=== PATIENT | female | born 1935 | race Caucasian/White ===

== ENCOUNTER 2017-10-17 08:21 | Inpatient (IN) ==
[2017-10-17] MEDS ORDERED: fentaNYL 100 MCG/2 ML VIAL IV ONE (08:50)
[2017-10-17] MEDS ORDERED: ONDANSETRON 4 MG/2 ML VIAL IV ONE ×2 (08:51→14:55)
--- NOTE | 2017-10-17 10:26 | XRay Report ---
CLINICAL INFORMATION: Preoperative evaluation TECHNIQUE: PA chest x-ray COMPARISON: 10/07/2017 FINDINGS: There are power packs overlying the upper chest bilaterally. These are apparently for neural stimulators. Lungs are negative. No parenchymal infiltrate or mass. Heart size and vascularity are normal. No pulmonary edema. No pulmonary congestion. No acute abnormality or interval change. Incidental note is made of methylmethacrylate within the L1 vertebral body. IMPRESSION: No acute or focal abnormality Interpreted and Authenticated by: Antoine Jacques 10/17/17
--- NOTE | 2017-10-17 10:28 | XRay Report ---
CLINICAL INFORMATION: Left shoulder pain TECHNIQUE: AP internal and external rotation views, axillary view COMPARISON: None. FINDINGS: Mild degenerative disease in the left glenohumeral joint. Mild degenerative disease in the acromioclavicular joint. No left shoulder fracture. No glenohumeral dislocation. Scapula and clavicle are negative. Humeral head is negative IMPRESSION: 1. No fracture or dislocation 2. Mild degenerative joint disease Interpreted and Authenticated by: Antoine Jacques 10/17/17
--- NOTE | 2017-10-17 10:36 | XRay Report ---
CLINICAL INFORMATION: Fall. Hip pain. TECHNIQUE: AP pelvis. AP and lateral left hip COMPARISON: Previous pelvis dated 03/15/2016 FINDINGS: Comminuted intratrochanteric left hip fracture. There is foreshortening and marked varus angulation deformity. There is atherosclerotic calcification. There is mild deformity of the left superior pubic ramus. This is unchanged. No acute pelvic fracture. IMPRESSION: 1. Comminuted left intertrochanteric hip fracture 2. Foreshortening and varus angulation deformity Interpreted and Authenticated by: Antoine Jacques 10/17/17
[2017-10-17] MEDS: HYDROmorphone 2 MG/ML VIAL IV PRN ×3 (11:45→19:00)
--- NOTE | 2017-10-17 11:59 | Emergency Department Note ---
Fall HPI - General Chief Complaint: Fall Stated Complaint: fall, hip pain, shoulder pain. Time Seen by Provider: 10/17/17 11:26 Source: family, EMS Mode of arrival: wheelchair - History of Present Illness HPI Narrative: This very nice 82-year-old female fell around 7 AM this morning and had pain in her left shoulder and left hip. She has a history of several falls recently. This is due to her Parkinson's which has become quite severe. She uses a walker but requires assist. She is not on any blood thinners. There was no loss of consciousness. She usually is able to get to the bathroom. She has significant pain and that is why she is here in the emergency room now. She received 50 of fentanyl in route and an additional 50 here in the ER. Her pain is coming back now. Patient has recently started hospice due to her severe Parkinson's and failure to thrive. She has difficulties with her appetite being poor as well as some difficulty swallowing which is at least in part due to the fixed hyperflexion of her neck. This is contributed to some choking as well. REVIEW OF SYSTEMS: No fevers, chills or sweats. Denies chest pain. Denies cough and shortness of breath. Denies abdominal pain, nausea, vomiting. Has some anxiety and some depression type of symptoms. - Related Data Home Medications Medication Instructions Recorded Confirmed ferrous sulfate, dried ER 159 mg 159 mg PO QDAY tab 05/06/15 06/24/17 (45 mg iron) tablet,extended release pramipexole 0.5 mg tablet 0.5 mg PO TID 05/06/15 06/24/17 selegiline 5 mg tablet 5 mg PO BID 05/06/15 06/24/17 carisoprodol 350 mg tablet 350 mg PO QHS tab 06/27/15 06/24/17 cyanocobalamin (vit B-12) 1,000 1,000 mcg IM QMONTH 12/04/15 06/24/17 mcg/mL injection solution sennosides 8.6 mg tablet 8.6 mg PO QD-BID PRN 12/04/15 06/24/17 hydrocodone 7.5 mg-acetaminophen PO 30 Days #90 07/07/16 06/24/17 325 mg tablet Tradjenta 03/28/17 06/24/17 Previous Rx's Medication Instructions Recorded linaclotide 145 mcg capsule 145 mcg PO QAM #30 cap 10/03/15 calcium 600 mg-D3 800 unit-mag11 1 tab-cap PO BID #180 tab 03/04/16 50 yb-bpbp-knvqwt-darrin-s.borat tablet linagliptin 5 mg tablet 5 mg PO QDAY #90 tab 10/20/16 atorvastatin 10 mg tablet 10 mg PO .COMPLEX #90 tab 11/04/16 valacyclovir 500 mg tablet See Dose Instructions PO .COMPLEX 01/03/17 #90 tab metformin 500 mg tablet 500 mg PO BID #180 tab 02/17/17 True Metrix Glucose Meter See Dose Instructions .ROUTE 06/27/17 .MEDSUPPLY #1 each NS True Metrix Glucose Test Strip See Dose Instructions .ROUTE 06/27/17 .MEDSUPPLY #100 each NS levothyroxine 75 mcg tablet 75 mcg PO QDAY #90 tab 08/16/17 HYDROcodone/APAP 10/325MG [[place] 1 tab PO Q6H PRN #20 tab 08/24/17 10-325Mg] amoxicillin 875 mg-potassium 1 tab PO BID #20 tab 09/14/17 clavulanate 125 mg tablet risperidone 0.5 mg tablet 0.5 mg PO QHS #30 tab 09/23/17 Allergies Allergy/AdvReac Type Severity Reaction Status Date / Time [place] Allergy Unknown unknown Verified 10/17/17 08:28 oats Allergy Unknown unknown Verified 10/17/17 08:28 wheat Allergy Unknown unknown Verified 10/17/17 08:28 sulfamethoxazole AdvReac Severe Nausea Verified 10/17/17 08:28 ibuprofen AdvReac Unknown Itching Verified 10/17/17 08:28 sitagliptin [From Januvia] AdvReac Unknown Abdominal Verified 10/17/17 08:28 Pain Fall PMH - Past Medical History Medical history: Reports: DM, hyperlipidemia, hypertension, hypothyroidism, osteoporosis (Compression fractures thoracic, lumbar.), other (Parkinson's disease - severe. ). Denies: cancer, CVA, myocardial infarction Reports: Parkinson's Disease Surgical history ED: Reports: other (Double brain stimulator.) Psychiatric history: Reports: anxiety, depression, other (Hallucinations) SOLID SURFACE FABRICATOR history: Reports: non-contributory Family history: Reports: no significant family history - Social History smoking status: Never smoker Alcohol use: Reports: None Drug use: Reports: none. Denies: marijuana Physical Exam Limitations: physical limitation General appearance: alert, cachectic, other (Limited abilities to move in bed.) Head: atraumatic, normocephalic Eye: Present: EOMI ENT: mucous membranes dry Neck: Present: trachea midline Respiratory: Present: normal lung sounds bilaterally. Absent: respiratory distress, wheezes, stridor, accessory muscle use, prolonged expiratory phase Cardiovascular: Present: regular rate, normal rhythm. Absent: systolic murmur, diastolic murmur Abdominal: Present: soft. Absent: distention, tenderness, guarding, rebound, rigidity, organomegaly, mass Extremities: Absent: pedal edema, pretibial edema, calf tenderness Neurological: Present: alert Psychiatric: Present: flat affect (more facies. interactive appropriately but slow of speech and quiet in volume.) Skin: Present: warm, dry Course Course Narrative: Severe Parkinson's with a fall. X-ray demonstrates a intertrochanteric fracture of the left hip. I discussed with patient and his the considerations of having this be surgically treated. I spoke with the orthopedic physician who indicates that a short nail would be the temporary probable fix that would be most effective and useful. Without this, she would have still some significant pain with even moving around for taking care of hygiene etc. She would not be able to stand, she would have side effects of medications, etc. It seems that the right thing to do for palliation of her pain and least medication side effects would be to go ahead and have the surgical procedure. Dr. Christianson seems to be in agreement with this. Pending hospitalist to accept care and consult orthopedic Vital Signs Temperature 97.7 F 10/17/17 08:23 Pulse Rate 69 10/17/17 08:23 Respiratory Rate 16 10/17/17 08:23 Blood Pressure 123/55 10/17/17 08:23 Pulse Oximetry (%) 96 10/17/17 08:23 Temperature 97.7 F 10/17/17 08:23 Pulse Rate 70 10/17/17 09:50 Respiratory Rate 20 10/17/17 09:50 Blood Pressure 125/63 10/17/17 09:50 Pulse Oximetry (%) 96 10/17/17 09:50 Fall - MDM Narrative Medical decision making narrative: Because of patient's left hip fracture, I spoke with orthopedic, Dr. Lionel Christianson, and then with hospitalist Dr. Zarco. Conclusion generally in discussing pluses and minuses including involving patient's and patient is that the surgical procedure may be the most beneficial to the patient with least amount of pain, management difficulties, and side effects of medications. Dr. Zarco kindly accepted care of this patient and Dr. Christianson will then consult. - Lab Data Lab results reviewed: Yes I reviewed the patient's lab results. - Radiology Data Radiology results reviewed: Yes I reviewed the patient's radiology results. - EKG Data EKG results narrative: Difficult to read ECG due to brain stimulator. No acute ST-T wave findings. This EKG will be read by plate worker as well. Disposition Pt seen by SENIOR MANUFACTURING ENGINEER/PA only: No Clinical Impression: History of compression fracture of spine Hip fracture, left Qualifiers: Encounter type: initial encounter Fracture type: closed Qualified Code(s): S72.002A - Fracture of unspecified part of neck of left femur, initial encounter for closed fracture Osteoporosis Qualifiers: Osteoporosis type: unspecified Presence of current pathological fracture: with current pathological fracture Encounter type: subsequent encounter Fracture healing: with routine healing Qualified Code(s): M80.00XD - Age-related osteoporosis with current pathological fracture, unspecified site, subsequent encounter for fracture with routine healing Diabetes mellitus type 2, controlled, without complications Qualifiers: Diabetes mellitus senior care insulin use: without buttermaker continuous churn use Qualified Code(s ): E11.9 - Type 2 diabetes mellitus without complications Disposition: Xfer As Inpt ([facility]) Condition: Fair Referrals: Selvin Cochran MD [Primary Care Provider] -
[2017-10-17 12:39] LABS: Basophils # (Auto) 0 K/mcL (0.0-0.3); Basophils % (Auto) 0.1 % (0.0-2.0); Eosinophils # (Auto) 0 K/mcL (0.0-0.7); Eosinophils % (Auto) 0 % (0.0-7.0); Granulocytes % (Auto) 93.1 % (38.0-78.0); Lymphocytes # (Auto) 0.7 K/mcL (1.5-4.8); Mean Cell Volume 95.8 fL (80.0-100.0); Mean Corpuscular HGB Conc 33.2 g/dL (31.0-36.0); Mean Corpuscular Hemoglobin 31.8 pg (26.0-34.0); Monocytes # (Auto) 0.3 K/mcL (0.1-0.9); Monocytes % (Auto) 1.8 % (1.0-12.0); Platelet Count 219 K/mcL (140-440); RBC 3.72 M/mcL (4.00-5.20); Red Cell Distribution Width 13.8 % (11.5-14.5)
[2017-10-17 13:03] LABS: ALT/SGPT 20 U/l (0-40); Albumin 3.8 gm/dL (3.2-5.2); Albumin/Globulin Ratio 1.7 (1.0-2.3); Alkaline Phosphatase 66 U/L (39-117); Blood Urea Nitrogen 11 mg/dl (8-23)
[2017-10-17] MEDS ORDERED: 0.9 % SODIUM CHLORIDE 1,000 ML IV SCH ×4 (13:30→17:17)
[2017-10-17] MEDS ORDERED: ceFAZolin 1 GM VIAL IV ONE (14:06)
[2017-10-17] MEDS ORDERED: KETAMINE 100 MG/ML ML IV ONE (14:55)
[2017-10-17] MEDS ORDERED: GLYCOPYRROLATE 0.2 MG/ML VIAL IV ONE (14:55)
[2017-10-17] MEDS ORDERED: MIDAZOLAM 2 MG/2 ML VIAL IV ONE (14:55)
[2017-10-17] MEDS ORDERED: LIDOCAINE HCL/PF 100 MG/5 ML SYRINGE IV ONE (14:55)
[2017-10-17] MEDS ORDERED: PROPOFOL 200 MG/20 ML VIAL IV ONE (14:55)
[2017-10-17 15:16] LABS: Appearance,Urine CLEAR; Bilirubin,Urine NEG (NEG); Color,Urine YELLOW; Glucose,Urine (UA) NEGATIVE (NEG); Leukocyte Esterase,Urine NEG /uL (NEG); Protein,Urine NEG (NEG); Specific Gravity,Urine 1.017 (1.000-1.035); Urine Blood NEG mg/dL (<0.03); Urobilinogen,Urine NEG (NEG)
--- NOTE | 2017-10-17 15:29 | History and Physical Report ---
DATE OF ADMISSION: 10/17/2017 CHIEF COMPLAINT: Fall with left hip and shoulder pain. HISTORY OF PRESENT ILLNESS: The patient is an 82-year-old female who fell earlier this morning who was brought to the emergency room after complaining of left hip and shoulder pain. She was evaluated by an emergency medicine physician and found to have a left hip fracture. She states on exam today that she has fallen quite a bit recently due to her Parkinson's which is progressing and becoming more severe. She was recently placed on hospice and is living at home with her . She typically ambulates with a walker and requires quite a bit of assistance. She states that she was putting on slippers this morning and slipped and fell. She is complaining of left hip pain but no pain in the rest of her extremities. She does say she has a little left shoulder pain from the fall, but her other extremities are without pain. She denies numbness, tingling, chest pain, shortness of breath, dizziness. She denies hitting her head or losing consciousness during the fall. The patient was seen and examined at bedside with her . She also has failure to thrive which is part of why she was placed on hospice. REVIEW OF SYSTEMS: Negative except as documented in the HPI. HOME MEDICATIONS: 1. Ferrous sulfate. 2. Pramipexole. 3. Selegiline. 4. Carisoprodol. 5. Cyanocobalamin. 6. Sennoside. 7. Hydrocodone. 8. Tradjenta. ALLERGIES: 1. CORN. 2. OAT. 3. WHEAT. 4. SULFAMETHOXAZOLE. 5. IBUPROFEN. 6. SITAGLIPTIN. PAST MEDICAL HISTORY: Includes diabetes mellitus, hyperlipidemia, hypertension, hypothyroidism, osteoporosis, Parkinson's disease. SOCIAL HISTORY: The patient is not a smoker. No alcohol use, no drug use. PHYSICAL EXAMINATION: VITAL SIGNS: Temperature 97.7, pulse is 69, respiratory rate 16, blood pressure 123/55, bedside pulse ox on room air is 96%. GENERAL: Alert, no distress, cachectic, fatigued. HEAD: Atraumatic, normocephalic. LUNGS: All anterior lung barrett clear to auscultation bilaterally. No use of accessory muscles. HEART: Regular rate and rhythm. No murmurs, gallops or rubs are appreciated. EXTREMITIES: The patient is lying with knees bent to the left side as this is more comfortable for her. Full range of motion of the lower extremities was not evaluated due to pain. She can actively move her ankles and feet. She has full sensation, grossly intact to light touch throughout the lower extremities. Bilateral upper extremities are nontender to palpation. The patient has severe muscle wasting throughout the entire body. PERIPHERAL VASCULAR: Radial pulses 2+ bilaterally. DP/PT pulses are 2+ bilaterally. Good capillary refill less than 3 seconds distally. SKIN: Warm, dry, without abrasions. NEUROLOGIC: Alert and oriented x3. LABORATORY DATA: WBC 14.8, hemoglobin 11.8, hematocrit 35.6. PT 14, INR 1.1. Random glucose 161. IMAGING STUDIES: Hip X-ray of the left hip reveals a displaced intertrochanteric left hip fracture. Shoulder x-rays from today reveal no osseous injury or abnormality. IMPRESSION: Left displaced intertrochanteric femur fracture. PLAN: After reviewing these images with Dr. Christianson and discussing treatment options with the patient and her , we recommend surgical intervention with an intramedullary nailing of the left hip for fracture stabilization and pain control. We discussed the surgery at length, including the risks and benefits associated which included but not limited to, risk of infection, the risk of malunion, the risk of nonunion, risk of bleeding, and the risks associated with anesthesia. The patient and her understand these risks and wished to proceed with surgery for comfort measures. The surgery will be performed by Dr. Christianson today at [facility]. We would like the patient to be admitted with a hospitalist consultation for further medical management and medical care. All questions were answered during the consultation. CKsavannah Job ID: [id number] Doc ID: [id number] Paty Brown
[2017-10-17] MEDS ORDERED: METHOCARBAMOL 1,000 MG/10 ML VIAL IV PRN (15:36)
[2017-10-17] MEDS ORDERED: MEPERIDINE 25 MG/ML SYRINGE IV PRN (15:36)
[2017-10-17] MEDS ORDERED: IPRATROPIUM/ALBUTEROL 3 ML AMPUL.NEB NEB PRN (15:36)
[2017-10-17] MEDS ORDERED: fentaNYL 100 MCG/2 ML VIAL IV PRN (15:36)
[2017-10-17] MEDS ORDERED: ONDANSETRON 4 MG/2 ML VIAL IV PRN ×2 (15:36→17:17)
[2017-10-17] MEDS ORDERED: ACETAMINOPHEN 750 MG/75 ML BOTTLE IV ONE (15:36)
[2017-10-17] MEDS ORDERED: LACTATED RINGERS 1,000 ML IV SCH (15:45)
--- NOTE | 2017-10-17 15:46 | Brief Operative Note ---
Date of procedure: 10/17/17 Pre-op diagnosis: left hip IT fracture Post-op diagnosis: same Procedure: left hip gamma nail Grafts/Implants: Yes Anesthesia: GETA Complications: none Surgeon: Antoine Christianson Tobacco Hanger: Paty Brown Estimated blood loss (cc): 100 Specimens Removed/Pathology: none sent Condition: stable Disposition: PACU
[2017-10-17] MEDS ORDERED: POLYETHYLENE GLYCOL 3350 17 GM PACKET PO PRN ×2 (15:47→17:17)
[2017-10-17] MEDS ORDERED: BISACODYL 10 MG SUPP.RECT PR PRN ×2 (15:47→17:17)
[2017-10-17] MEDS ORDERED: HYDROcodone/APAP 5/325MG TABLET PO PRN (15:47)
[2017-10-17] MEDS ORDERED: BENZOCAINE/MENTHOL 1 LOZENGE PO PRN ×2 (15:47→17:17)
[2017-10-17] MEDS ORDERED: METHOCARBAMOL 750 MG TABLET PO PRN (15:47)
[2017-10-17] MEDS ORDERED: MAGNESIUM HYDROXIDE 30 ML ORAL.SUSP PO PRN ×2 (15:47→17:17)
[2017-10-17] MEDS ORDERED: ONDANSETRON ODT 4 MG TABLET SL PRN ×2 (15:47→17:17)
[2017-10-17] MEDS ORDERED: FLEETS ADULT ENEMA PR PRN ×2 (15:47→17:17)
--- NOTE | 2017-10-17 16:05 | XRay Report ---
CLINICAL INFORMATION: Open reduction and internal fixation left intertrochanteric hip fracture TECHNIQUE: 0.8 minutes fluoroscopy utilized. Open reduction and internal fixation of a left hip fracture performed. Spot films were obtained demonstrating gamma nail configuration IMPRESSION: Intraoperative fluoroscopy utilized for open reduction and internal fixation of left intertrochanteric hip fracture Interpreted and Authenticated by: Antoine Jacques 10/17/17
[2017-10-17] MEDS ORDERED: traZODone HCL 50 MG TABLET PO PRN (17:17)
[2017-10-17] MEDS ORDERED: ACETAMINOPHEN 1,000 MG/100 ML BOTTLE IV PRN (17:17)
[2017-10-17] MEDS ORDERED: ACETAMINOPHEN 325 MG TABLET PO PRN (17:17)
[2017-10-17] MEDS ORDERED: HYDROmorphone 2 MG/ML VIAL IV PRN (17:17)
--- NOTE | 2017-10-17 17:36 | XRay Report ---
CLINICAL INFORMATION: Postsurgical follow-up TECHNIQUE: AP pelvis. [place] lateral left hip COMPARISON: Preoperative evaluation dated 10/17/2017 FINDINGS: Intertrochanteric left hip fracture. Status post open reduction and internal fixation with gamma nail configuration. Alignment is suboptimally assessed as the patient is rotated. Compression screw and intramedullary nail within bone and alignment is markedly improved as compared with preoperative evaluation. IMPRESSION: 1. Intratrochanteric left hip fracture 2. Status post open reduction and internal fixation with gamma nail configuration Interpreted and Authenticated by: Antoine Jacques 10/17/17
[2017-10-17] MEDS ORDERED: WARFARIN 2 MG TABLET PO ONE (18:00)
[2017-10-17] MEDS: 0.9 % SODIUM CHLORIDE 1,000 ML IV SCH (18:59)
[2017-10-17] MEDS: 0.9 % SODIUM CHLORIDE 10 ML SYRINGE IV SCH ×2 (18:59→22:06)
[2017-10-17 20:25] LABS: Appearance,Urine CLEAR; Bilirubin,Urine NEG (NEG); Color,Urine YELLOW; Glucose,Urine (UA) NEGATIVE (NEG); Ictotest,Urine NEG (NEG); Leukocyte Esterase,Urine NEG /uL (NEG); Protein,Urine NEG (NEG); Specific Gravity,Urine 1.033 (1.000-1.035); Urine Blood NEG mg/dL (<0.03); Urobilinogen,Urine NEG (NEG)
[2017-10-17] MEDS: SENNOSIDES/DOCUSATE SODIUM 1 TAB TABLET PO SCH (20:30)
[2017-10-17] MEDS: DOCUSATE SODIUM 100 MG CAPSULE PO SCH (20:30)
[2017-10-17] MEDS ORDERED: HEPARIN 5,000 UNIT/ML VIAL SQ SCH (21:00)
[2017-10-17] MEDS ORDERED: SENNOSIDES 1 TABLET PO SCH ×2 (21:00)
[2017-10-17] MEDS ORDERED: DOCUSATE SODIUM 100 MG CAPSULE PO SCH ×2 (21:00)
[2017-10-17] MEDS ORDERED: SENNOSIDES 1 TABLET PO PRN (21:51)
--- NOTE | 2017-10-17 21:58 | Internal Med History&Physical ---
Medical - H&P: HPI Patient information: Note initiated : 10/17/17 at 9:55 pm Service Date, if different from initiated Date: [] Patient: Tere Mancia a 82 y/o F admitted on 10/17/17 for Fall, Hip Pain, Shoulder Pain. Chief Complaint: [] Chief complaint: fall , left hip fracture History of present illness: Ms. Mancia is a 82 year old F admitted following a traumatic left hip fracture , H/o parkinsons with ataxia. Patient came in to the ER with her . She sustained a fall this morning getting off balance landing on her left hip and shoulder. Denies history of seizure, loss of consciousness, recent fever or chest pain, palpitation or thunderclap headache. Patient has had a gradual decline due to underlying Parkinson's disease and failure to thrive and is on hospice however in light of new fracture and excruciating pain she is currently being evaluated by orthopedics for possible surgical repair for palliation. Hospitalist service is consulted for management of medical issues. At the time of examination patient is in moderate discomfort. She is scheduled for surgical repair in the next few hours. No modifiable risk factor at this time. Patient remains a high risk operative candidate. Review systems Denies fever, abdominal pain, headache photophobia. Endorses to back pain and left shoulder pain. Denies diarrhea dysuria or chest pain or cough. 10 point review systems is performed and is negative except as discussed above Medical - H&P: PMH Medical history: DM 2 Compression fracture of lumbar vertebra (Acute) BPPV (benign paroxysmal positional vertigo) (Chronic) Cervical spondylosis without myelopathy (Chronic) Chronic pain (Chronic) Degenerative disc disease (Chronic) Hypercholesterolemia (Chronic) Hyperlipidemia (Chronic) Hypothyroidism (acquired) (Chronic) Intermittent constipation (Chronic) Menieres disease (Chronic) Parkinsons disease (Chronic) Postgastric surgery syndromes (Chronic) Dumping syndrome Restless leg syndrome (Chronic) Chronic Slow transit constipation (Chronic) Spondylolysis, lumbosacral region (Chronic) Abdominal pain (Resolved) Cervical dystonia (Resolved) Chronic and worse Cervicalgia (Resolved) Chronic cervicalgia with advanced cervical dystonia Closed fracture of pelvis (Resolved) Fall at home (Resolved) Gastrointestinal disorder (Resolved) 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 Hyperglycemia (Resolved) Joint pain (Resolved) Arthritis/acute chronic site unspec Left hip pain (Resolved) Left low back pain (Resolved) UTI (urinary tract infection) (Resolved) Surgical history: S/P deep brain stimulator placement (Chronic) Implantation History of back surgery (Resolved) Lumbar disc surgery-age 67 History of partial hysterectomy (Resolved) age 31 Hx of tonsillectomy (Resolved) age 14 S/P foot surgery (Resolved) S/P gastroplasty (Resolved) age 27 Pertinent family history: Uncle Malignant neoplasm of prostate Grandmother-Paternal Family history of malignant neoplasm of gastrointestinal tract Brother Family history of arthritis Type 2 diabetes mellitus Mother Family history of leukemia Sister Type 2 diabetes mellitus Amyotrophic lateral sclerosis, Onset Age: 70 Social history: marital status: occupational status: retired smoking status: Never smoker alcohol intake frequency: does not drink substance use type: does not use Medical - H&P: Meds Home Medications Medication Instructions Recorded Confirmed Type pramipexole 0.5 mg tablet 0.5 mg PO TID 05/06/15 10/17/17 History linaclotide 145 mcg capsule 145 mcg PO QAM #30 cap 10/03/15 10/17/17 Rx sennosides 8.6 mg tablet 8.6 mg PO QD-BID PRN 12/04/15 10/17/17 History linagliptin 5 mg tablet 5 mg PO QDAY #90 tab 10/20/16 10/17/17 Rx atorvastatin 10 mg tablet 10 mg PO .COMPLEX #90 tab 11/04/16 10/17/17 Rx valacyclovir 500 mg tablet See Dose Instructions PO .COMPLEX 01/03/17 10/17/17 Rx #90 tab metformin 500 mg tablet 500 mg PO BID #180 tab 02/17/17 10/17/17 Rx levothyroxine 75 mcg tablet 75 mcg PO QDAY #90 tab 08/16/17 10/17/17 Rx risperidone 0.5 mg tablet 0.5 mg PO QHS #30 tab 09/23/17 10/17/17 Rx HYDROcodone/APAP 5/325MG [[place] 1 - 2 tab PO Q4HP PRN #60 tab 10/18/17 Rx 5-325Mg] Allergies Allergy/AdvReac Type Severity Reaction Status Date / Time [place] Allergy Unknown unknown Verified 10/17/17 08:28 oats Allergy Unknown unknown Verified 10/17/17 08:28 wheat Allergy Unknown unknown Verified 10/17/17 08:28 ibuprofen AdvReac Mild Itching Verified 10/17/17 16:37 sitagliptin [From [facility]] AdvReac Mild Abdominal Verified 10/17/17 16:37 Pain sulfamethoxazole AdvReac Mild Nausea Verified 10/17/17 16:37 Medical - H&P: Exam - Constitutional Vitals: Temp Pulse Resp BP Pulse Ox 98.2 F 104 H 18 115/73 94 10/17/17 16:47 10/17/17 21:03 10/17/17 21:03 10/17/17 21:03 10/17/17 21:03 General appearance: moderate distress, thin Exam: Pupils symmetric oral cavity dry no ear nose discharge Head normocephalic Neck no lymphadenopathy S1 and S2 occasionally irregular Chest clear Abdomen soft Left lower extremity externally rotated and shortened No cyanosis clubbing edema Skin no suspicious lesion Psych alert but anxious Neuro resting tremor Medical - H&P: Reslt - Labs CBC & Chem 7: 10/18/17 04:51 10/17/17 12:09 Labs: Short CBC 10/17/17 Range/Units 12:09 WBC 14.8 H (4.5-11.0) K/mcL Hgb 11.8 L (12.0-15.0) g/dL Hct 35.6 L (36.0-48.0) % Plt Count 219 (140-440) K/mcL BMP 10/17/17 12:09 Sodium 141 Potassium 3.9 Chloride 103 Carbon Dioxide 22 BUN 11 Creatinine 0.6 Glucose 161 H Calcium 8.8 Liver Function 10/17/17 Range/Units 12:09 Total Bilirubin 0.4 (0.0-1.0) mg/dL AST 13 (0-37) U/l ALT 20 (0-40) U/l Alkaline Phosphatase 66 (39-117) U/L Albumin 3.8 (3.2-5.2) gm/dL Urine 10/17/17 10/17/17 Range/Units 11:52 19:15 Urine Color Yellow Yellow Urine Appearance Clear Clear Urine pH 5.0 5.0 (5.0-9.0) Ur Specific [place] 1.017 1.033 (1.000-1.035) Urine Protein Neg Neg (NEG) mg/dL Urine Glucose (UA) Negative Negative (NEG) mg/dL Medical - H&P: A/P - Narrative A/P Narrative: * left hip fracture- will be managed per orthopedics * Pain Management- per orthopedics * DVT prophylaxis per ortho hospitalist consult * History of Parkinson's disease-continue pramipexole/selegiline * DM type II continue prandial insulin/sitagliptin/metformin * Hyperlipidemia on statin * Hypothyroidism on thyroxine * DNR comfort care Plan * Review postop * Pre-existing medical condition management as above * Postoperative care/DM prophylaxis/pain management per orthopedics. Medical - H&P: Qual - VTE Deep Vein Thrombosis/Pulmonary Embolism Present on Admission: No
[2017-10-17] MEDS: HYDROcodone/APAP 5/325MG TABLET PO PRN (22:05)
[2017-10-17] MEDS ORDERED: ceFAZolin 1 GM VIAL IV SCH (23:00)
[2017-10-17] MEDS: ceFAZolin 1 GM VIAL IV SCH (23:15)
[2017-10-18] MEDS: HYDROmorphone 2 MG/ML VIAL IV PRN (02:14)
[2017-10-18] MEDS: 0.9 % SODIUM CHLORIDE 10 ML SYRINGE IV SCH ×3 (05:27→20:57)
--- NOTE | 2017-10-18 06:21 | Orthopedic Progress Note ---
Subjective Patient information: Note initiated : 10/18/17 at 6:19 am Service Date, if different from initiated Date: [] Patient: Tere Mancia 82 y/o F admitted on 10/17/17 for Fall, Hip Pain, Shoulder Pain. Chief Complaint: [POD #1 s/p IM nailing of left hip Patient is resting comfortably this morning. A full assessment is unavailable due to her mental status this morning. She seems to be fairly comfortable and is in no acute distress.] Objective Vital signs: Vital Signs Temp Pulse Pulse Resp BP BP BP 10/18/17 03:46 98.4 F 84 18 98/62 10/18/17 02:12 87 17 105/65 10/17/17 23:17 98.2 F 92 H 18 91/54 10/17/17 21:18 98.7 F 93 H 18 119/68 10/17/17 21:03 104 H 18 115/73 10/17/17 20:48 101 H 114/70 10/17/17 20:34 106 H 109/65 10/17/17 20:18 101 H 104/64 10/17/17 19:48 111 H 106/63 10/17/17 19:33 95 H 115/72 10/17/17 19:18 97 H 103/65 10/17/17 19:03 93 H 119/73 10/17/17 18:48 91 H 116/72 10/17/17 18:33 91 H 115/71 10/17/17 18:18 97 H 118/73 10/17/17 18:03 94 H 122/74 10/17/17 17:48 96 H 118/71 10/17/17 17:33 87 112/70 10/17/17 17:18 92 H 125/75 10/17/17 17:03 93 H 130/76 10/17/17 16:47 98.2 F 97 H 16 137/75 10/17/17 16:22 97.4 F 96 H 25 H 149/85 10/17/17 16:17 94 H 20 149/79 10/17/17 16:12 94 H 16 155/84 10/17/17 16:07 98.3 F 98 H 16 176/86 10/17/17 13:41 97 H 20 123/55 10/17/17 13:32 97 H 137/70 10/17/17 13:02 88 137/71 10/17/17 09:50 70 20 125/63 10/17/17 09:04 68 15 124/58 10/17/17 09:00 70 128/57 10/17/17 08:45 68 124/58 10/17/17 08:30 72 118/63 10/17/17 08:27 67 123/55 10/17/17 08:23 97.7 F 69 16 123/55 Pulse Ox 10/18/17 03:46 92 10/18/17 02:12 95 10/17/17 23:17 92 10/17/17 21:18 94 10/17/17 21:03 94 10/17/17 20:48 95 10/17/17 20:34 95 10/17/17 20:18 95 10/17/17 19:48 96 10/17/17 19:33 95 10/17/17 19:18 94 10/17/17 19:03 96 10/17/17 18:48 95 10/17/17 18:33 96 10/17/17 18:18 96 10/17/17 18:03 10/17/17 17:48 10/17/17 17:33 94 10/17/17 17:18 94 10/17/17 17:03 94 10/17/17 16:47 95 10/17/17 16:22 95 10/17/17 16:17 99 10/17/17 16:12 98 10/17/17 16:07 98 10/17/17 13:41 94 10/17/17 13:32 94 10/17/17 13:02 95 10/17/17 09:50 96 10/17/17 09:04 98 10/17/17 09:00 96 10/17/17 08:45 98 10/17/17 08:30 97 10/17/17 08:27 10/17/17 08:23 96 Intake and Output 10/17/17 10/18/17 10/18/17 21:59 05:59 13:59 Intake Total 440 / 440 700 / 700 Output Total 350 / 350 335 / 335 Balance 90 / 90 365 / 365 Intake: Oral 440 / 440 700 / 700 Output: Urine Catheter Amount 350 / 350 335 / 335 Other: Weight 112 lb Intake & Output: Intake & Output 10/17/17 10/18/17 10/18/17 21:59 05:59 13:59 Intake Total 440 / 440 700 / 700 Output Total 350 / 350 335 / 335 Balance 90 / 90 365 / 365 Weight 112 lb Intake: Oral 440 / 440 700 / 700 Output: Urine Catheter Amount 350 / 350 335 / 335 Incision: Yes healing, No draining, No red, No swollen, No inflamed, Yes clean and dry Incision clean and dry: Yes Dressing: Yes clean, Yes dry, Yes intact Weight bearing status: partial (50% with walker) Neurological exam IM: Yes alert, No oriented X3, Yes motor sensory intact, Yes neurovascular intact Additional Comments: full AROM b/l ankles and feet Extremities exam IM: No calf tenderness, Yes normal capillary refill, Yes Foot pink and warm, Yes neurovascular intact - Periperhal Pulses Peripheral pulses: 2+: dorsalis pedis (L), dorsalis pedis (R), posterior tibialis (L), posterior tibialis (R) - Diagnostic Results Hip x-ray: image reviewed (post op left hip XR reveals well seated and aligned IM hip nail) - Labs CBC & BMP: 10/18/17 04:51 10/17/17 12:09 Labs: Orthopedic Labs 10/18/17 10/17/17 04:51 12:09 PT 15.6 H 14.0 INR 1.2 H 1.1 10/18/17 10/17/17 04:51 12:09 Hgb 9.0 L 11.8 L Hct 27.7 L 35.6 L Assessment and Plan (1) Hip fracture, left POD #1 s/p left hip nailing: -TTWB to about 50% with walker -keep meg clean, dry and covered with dressing until PO appt -pain control -encourage movement of feet -outpatient PT/exercises -f/u in clinic in 10-14 days Status: Acute Qualifiers: Encounter type: initial encounter Fracture type: closed Qualified Code(s) : S72.002A - Fracture of unspecified part of neck of left femur, initial encounter for closed fracture
--- NOTE | 2017-10-18 06:26 | Discharge Summary ---
Providers - Providers Patient information: Note initiated : 10/18/17 at 6:23 am Service Date, if different from initiated Date: [] Patient: Tere Mancia 82 y/o F admitted on 10/17/17 for Fall, Hip Pain, Shoulder Pain. Chief Complaint: [POD #1 s/p left IM hip nailing Doing well. Limited exam due to patient's mental status. Appears comfortable] Discharge date: 10/18/17 Attending physician: Sarwat Nj Hospitalization Hospital course: Patient was brought to the ED for a left hip fracture. She was then taken to the OR on 10/17/2017 for fracture fixation with an intramedullary hip nail. Surgery happened without event or complication. She was then admitted to med surg for medical management and post operative observation. She will d/c to home hospice per hospitalist recommendation. She will follow up in 10-14 days for post operative wound care and x-rays. Discharge diagnosis: left hip fracture Exam - Exam Incision healing: Yes Incision draining: No Incision red: No Clean and dry: Yes Weight bearing status: partial Ortho Discharge Plan - General - Patient Instructions Diet: Clear Liquid Activity: ambulate with assistive device, partial weight bearing Dressing Care: Aquacel Ag - leave on for 5 days (if aquacel falls off, please replace with gauze) Patient Education: Hydrocodone (By mouth), Calcium and Osteoporosis (DC), Total Hip Replacement (DC) Additional Instructions: Discharge Instructions: Do the exercises at home that physical therapy gave you. Wear comfortable clothing for your physical therapy. Weight bearing as tolerated. You have the Aquacel Ag dressing, leave in place for 7 days then remove. If dressing becomes soiled (turns black), remove and use gauze 4x4 dressing and silvasorb ointment and change daily. Keep incision clean and dry. To avoid constipation while taking any narcotic pain medication, take an over the counter stool softener/laxative. Pt will continue 2 mg Coumadin daily. Orthopedic surgeon recommends PT/INR on Tuesday, October 23. Pharmacy to dose Coumadin. Call your physician for fevers above 100.5 or pain not controlled by medication. Your prescriptions are with your discharge information. Some medications were electronically transmitted to your pharmacy of choice. Follow-up PCP in 5 days F/u orthopedics as scheduled by orthopedics along with post op care. Coumadin as per orthopedics for post hip DVT prophylaxis Hospitalist recommends SNF physician to check INR, CBC BMP UA as a posthospital follow-up in 1 week. Continue aggressive bowel regimen to prevent constipation Continue fall precautions Continue aggressive PT OT evaluation and treatment at SNF. ST eval and treatment if indicated All meals on chair sitting upright at 90 degrees to prevent aspiration Return to ER if worsening fever chills shortness of breath, diarrhea, bleeding Refrain from smoking and alcohol Continue diet and activity as advised Discussed importance of medication adherence Please review medication list with patient prior to discharge Please schedule follow-up with PCP/Providers prior to discharge and provide printouts Portions of this chart may have been created with [employer] ([employer]) voice recognition software. Occasional wrong-word or ?sound-like? substitutions may have occurred due to the inherent limitations of voice recognition software. Please read the chart carefully and recognize, using context, where the substitutions have occurred. CC- PCP - Problem Maintenance (1) Hip fracture, left Status: Acute Qualifiers: Encounter type: initial encounter Fracture type: closed Qualified Code(s) : S72.002A - Fracture of unspecified part of neck of left femur, initial encounter for closed fracture - Follow Up Plan Follow Up Appointments: Selvin Cochran MD [Primary Care Provider] - (Schedule as needed. ) Antoine Christianson MD [Physician] - 11/02/17 (Please call/schedule follow up to be seen 10-14 days after surgery.) Disposition: [facility] Prognosis: Fair Rehab Potential: Fair I certify that the patient requires SNF services: Yes Overall status at discharge: patient is progressing back to baseline - Orders For Discharge Prescriptions: HYDROcodone/APAP 5/325MG [[place] 5-325Mg] 1 - 2 tab PO Q4HP PRN #60 tab PRN Reason: Pain Level 3-6 Warfarin [Coumadin] 2 mg PO DAILY #5 tab Additional Discharge Orders: OT Discharge Order Location: Determined By Patient Physical Therapy at Discharge - General Location: Determined By Patient Physical Therapy at Discharge - General Location: Determined By Patient Walker Location: Determined By Patient Pending Studies Resuscitation Status Do Not Resuscitate Diet Clear Liquid Diet Start TueOctober 17 Dinner Hydrocodone Bitart/Acetaminophen ([place] 5/325mg) 0 tab PO Q4HP PRN PRN Reason: PAIN LEVEL 3-6 Last Admin: 10/17/17 22:05 Dose: 2 tab Cefazolin Sodium (Ancef) 1 gm IV Q8H [facility] Stop: 10/18/17 07:01 Last Admin: 10/17/17 23:15 Dose: 1 gm Docusate Sodium (Colace) 100 mg PO BID [facility] Last Admin: 10/17/17 20:30 Dose: 100 mg Hydromorphone HCl (Dilaudid) 0 mg IV Q4HP PRN PRN Reason: PAIN LEVEL > 6 Last Admin: 10/18/17 02:14 Dose: 0.5 mg Admin: 10/17/17 19:00 Dose: 0.5 mg Sodium Chloride (Sodium Chloride 0.9%) 1,000 mls @ 50 mls/hr IV .Q20H [facility] Stop: 10/20/17 05:16 Last Admin: 10/17/17 18:59 Dose: Not Given Senna/Docusate Sodium (Senna Plus Tablet) 1 tab PO HS [facility] Last Admin: 10/17/17 20:30 Dose: 1 tab Sodium Chloride (Saline Flush) 10 ml IV Q8 [facility] Last Admin: 10/18/17 05:27 Dose: 10 ml Admin: 10/17/17 22:06 Dose: 10 ml Admin: 10/17/17 18:59 Dose: Not Given Shift Summary 10/18/17 04:29 Shift Summary by Shelbie Meyers Patient s/p Left Hip Gamma Xochitl. Alert and oriented x4, forgetful at times. Tolerated clear liquids-jello and apple juice. Patient in pain when repositioning on bed. Medicated for hip pain 7/10 with Dilaudid 0.5 mg x2 and [place] 2 tabs x1 with good effect. Desyrel given last night for sleep. Patient sleeping in between cares. IVF NS 50 infusing well on LFA. IV on RFA kept SL. FC in place, drained 335 mls pale yellow urine. Left hip dressing with small shadow drainage. Repositioned on bed using pillows. TRUPTI pumps on bilateral feet. Using IS 500 level. Patient has bilateral Deep Brain Stimulator batteries on upper chest for Parkinson's. SBP 90's-115 mmHg, HR 80-100's bpm, Sats 92-95% on RA. Initialized on 10/18/17 04:29 - END OF NOTE
[2017-10-18] MEDS: LEVOTHYROXINE 75 MCG TABLET PO SCH (06:44)
[2017-10-18] MEDS: ceFAZolin 1 GM VIAL IV SCH (06:44)
[2017-10-18] MEDS: HYDROcodone/APAP 5/325MG TABLET PO PRN ×3 (06:52→16:40)
[2017-10-18] MEDS: 0.9 % SODIUM CHLORIDE 1,000 ML IV SCH ×2 (08:04→14:17)
[2017-10-18] MEDS: metFORMIN 500 MG TABLET PO SCH ×2 (08:59→16:40)
[2017-10-18] MEDS: MULTIVIT,THER IRON,CA,FA & MIN 1 TABLET PO SCH (09:00)
[2017-10-18] MEDS: DOCUSATE SODIUM 100 MG CAPSULE PO SCH ×2 (09:00→20:56)
[2017-10-18] MEDS: PRAMIPEXOLE 0.25 MG TABLET PO SCH ×3 (09:00→20:55)
[2017-10-18] MEDS: Linaclotide [Linzess] 145 MCG PO SCH (09:52)
--- NOTE | 2017-10-18 10:17 | Operative Note ---
DATE OF OPERATION: 10/17/2017 PREOPERATIVE DIAGNOSIS: Intertrochanteric fracture, left hip. POSTOPERATIVE DIAGNOSIS: Intertrochanteric fracture, left hip. PROCEDURE: Left hip cephalomedullary nailing. SURGEON: Keke Christianson M.D. [employer] SURGEON: Paty Brown PA-C ANESTHESIA: Spinal with LMA assist. ESTIMATED BLOOD LOSS: 100 mL COMPLICATIONS: None noted. SPECIMENS REMOVED: None. DRAINS: None. IMPLANTS: [place] Gamma 125 degree short nail with a 95 mm lag screw and a 37.5 x 5.5 distal screw. INDICATIONS: The patient fell and was unable to ambulate. Radiographs have confirmed a displaced intertrochanteric fracture of the proximal femur. The patient was admitted to the hospital and underwent medical clearance. After a long discussion about treatment options, the patient elected to proceed with cephalomedullary nailing. The risks and benefits were discussed with the patient in detail including, but not limited to, the risks of anesthesia, problems with the heart or lungs related to anesthesia, infection, compromise or injury to the nerves and blood vessels, deep venous thrombosis, pulmonary embolism, pneumonia, continued pain after surgery, worsening pain or symptoms after surgery, swelling, loss of motion, malunion, non-union, leg length discrepancy, and need for repeat surgery. DESCRIPTION OF PROCEDURE: The patient was seen in pre-anesthesia waiting room where all questions were answered and the correct side and site were identified and marked. The patient was then brought to the operating room and administered the anesthetic and given preoperative antibiotics. A timeout was then called. The patient was placed on the fracture table with all prominences well padded. The leg was brought into traction, adduction, and slight internal rotation. We used C-arm with orthogonal views to confirm anatomic reduction of the fracture. The extremity was prepped and draped in the usual sterile fashion. C-arm was again used to confirm landmarks. A percutaneous incision was created about 4 centimeters proximal to the greater trochanter. A guide pin was placed into the femoral canal under fluoroscopy after we found the appropriate starting position along the medial boarder of the trochanter and just anterior to the center position laterally. We placed a protector sleeve proximally and over-reamed with the 17 mm proximal reamer. Next, we changed out the guide pin for a ball-tipped guide duke and placed it into the femoral canal. Position was confirmed with the c-arm. The 180 mm [place] Gamma nail was then placed with appropriate depth and version using the percutaneous targeting guide. The lateral lag screw sleeve was placed in the targeting guide and a second small percutaneous incision was made to allow the sleeve access to the lateral cortex of the femur. We drilled the guide pin into the center position of the femoral head confirmed with fluoroscopy. We measured and drilled over the guide pin. The lag screw was then inserted and we compressed the fracture then placed the proximal screw. The targeting sleeve was again used to place a percutaneous 5.0 mm screw distally in the static hole. It was drilled, measured, and placed using C-arm guidance. Traction was removed on the hip. The targeting device was then removed and final radiographs were taken confirming reduction of the fracture and adequate placement of all hardware. We thoroughly irrigated the three percutaneous incisions and closed the deep fascia with #0 Vicryl. We closed the subcutaneous tissue and skin in layers out to meg in the skin. A sterile pressure dressing was applied. All needle and sponge counts were correct. The patient was transferred to the recovery room in stable condition. BENNETT:danya Job ID: [id number] Doc ID: [id number] Keke Christianson MD
[2017-10-18] MEDS: METHOCARBAMOL 750 MG TABLET PO PRN (12:27)
[2017-10-18] MEDS ORDERED: WARFARIN 4 MG TABLET PO SCH (14:00)
[2017-10-18] MEDS: risperiDONE 0.25 MG TABLET PO SCH (20:53)
[2017-10-18] MEDS: ATORVASTATIN 20 MG TABLET PO SCH (20:56)
[2017-10-18] MEDS: SENNOSIDES/DOCUSATE SODIUM 1 TAB TABLET PO SCH (20:57)
[2017-10-18] MEDS ORDERED: INSULIN LISPRO 1 UNIT/0.01 ML UNIT SQ ONE (21:50)
[2017-10-18] MEDS: INSULIN LISPRO 1 UNIT/0.01 ML UNIT SQ SCH (21:52)
--- NOTE | 2017-10-18 22:42 | Internal Med Progress Note ---
Medical - PN: Subj Patient information: Note initiated : 10/18/17 at 10:40 pm Service Date, if different from initiated Date: [] Patient: Tere Mancia a 82 y/o F admitted on 10/17/17 for Fall, Hip Pain, Shoulder Pain/Hip Fracture, Left. Chief Complaint: [] Interval history: Ms. Mancia is a 82 year old F admitted following a traumatic left hip fracture , H/o parkinsons with ataxia. Patient came in to the ER with her . She sustained a fall this morning getting off balance landing on her left hip and shoulder. Denies history of seizure, loss of consciousness, recent fever or chest pain, palpitation or thunderclap headache. Patient has had a gradual decline due to underlying Parkinson's disease and failure to thrive and is on hospice however in light of new fracture and excruciating pain she is currently being evaluated by orthopedics for possible surgical repair for palliation. Hospitalist service is consulted for management of medical issues. At the time of examination patient is in moderate discomfort. She is scheduled for surgical repair in the next few hours. No modifiable risk factor at this time. Patient remains a high risk operative candidate. 10/18-postoperative day 1. Age and doing well. No overnight events. No concerns per staff. Denies significant postoperative pain. Tolerating physical therapy. Family expressed concerns about inability to take care of her at home. Family also requested postoperative rehabilitation and hence case management consulted for transfer to short-term rehabilitation on discharge. On Coumadin per orthopedics for DVT prophylaxis. Pain in good control.. - Constitutional Vitals: Vital Signs Temp Pulse Resp BP Pulse Ox 98.9 F 93 H 22 106/68 94 10/18/17 19:48 10/18/17 19:48 10/18/17 19:48 10/18/17 19:48 10/18/17 19:48 Period Temp Pulse Resp BP Sys/Mcneal Pulse Ox Last 24 Hr 97.0 F-98.9 F 84-93 17-22 91-108/54-68 91-95 Intake and Output 10/18/17 10/18/17 10/19/17 13:59 21:59 05:59 Intake Total 120 / 120 800 / 800 Output Total 200 / 200 Balance 120 / 120 600 / 600 Weight 117 lb 8 oz 117 lb 8 oz Patient Weight 10/19/17 05:59 Weight 117 lb 8 oz Intake & Output: Intake & Output 10/18/17 10/18/17 10/19/17 13:59 21:59 05:59 Intake Total 120 / 120 800 / 800 Output Total 200 / 200 Balance 120 / 120 600 / 600 Weight 117 lb 8 oz 117 lb 8 oz Intake: Oral 120 / 120 800 / 800 Output: Urine Catheter Amount 200 / 200 Other: Meal Lunch Percent of Meal Consumed 50% General appearance: no acute distress Exam: Alert Nondistressed Nonlabored breathing No lymphedema Anxiety Medical - PN: Obj Da - Labs CBC & Chem 7: 10/18/17 04:51 10/17/17 12:09 Labs: Abnormal Lab Results 10/18/17 10/18/17 10/17/17 04:51 04:51 19:15 WBC RBC Hgb 9.0 L Hct 27.7 L Gran % Lymph % (Auto) Gran # Lymph # (Auto) PT 15.6 H INR 1.2 H Glucose Urine Ketones 80 A 10/17/17 10/17/17 10/17/17 12:09 12:09 11:52 WBC 14.8 H RBC 3.72 L Hgb 11.8 L Hct 35.6 L Gran % 93.1 H Lymph % (Auto) 5.0 L Gran # 13.7 H Lymph # (Auto) 0.7 L PT INR Glucose 161 H Urine Ketones 20 A Meds: Medications Acetaminophen (Tylenol) 650 mg PO Q4-6HP PRN PRN Reason: PAIN/FEVER > 101 Hydrocodone Bitart/Acetaminophen ([place] 5/325mg) 0 tab PO Q4HP PRN PRN Reason: PAIN LEVEL 3-6 Last Admin: 10/18/17 16:40 Dose: 2 tab Atorvastatin Calcium (Lipitor) 10 mg PO HS [facility] Last Admin: 10/18/17 20:56 Dose: 10 mg Bisacodyl (Dulcolax) 10 mg NC Q2-3DAYS PRN PRN Reason: Constipation Diagnostic Test (Pha) (Accu-Chek) 1 each FS ACHS [facility] PRN Reason: Protocol Last Admin: 10/18/17 21:51 Dose: 1 each Docusate Sodium (Colace) 100 mg PO BID [facility] Last Admin: 10/18/17 20:56 Dose: 100 mg Hydromorphone HCl (Dilaudid) 0.5 mg IV Q15MIN PRN PRN Reason: PAIN LEVEL > 6 Hydromorphone HCl (Dilaudid) 0 mg IV Q4HP PRN PRN Reason: PAIN LEVEL > 6 Last Admin: 10/18/17 02:14 Dose: 0.5 mg Sodium Chloride (Sodium Chloride 0.9%) 1,000 mls @ 50 mls/hr IV .Q20H [facility] Stop: 10/20/17 05:16 Last Admin: 10/18/17 14:17 Dose: Not Given Acetaminophen (Ofirmev) 1,000 mg in 100 mls @ 200 mls/hr IV Q6HP PRN PRN Reason: PAIN/FEVER > 101 Insulin Human Lispro (Humalog) 0 unit SQ ACHS [facility] PRN Reason: Protocol Last Admin: 10/18/17 21:52 Dose: Not Given Iron Carb/Multivit/Montreat/Folic Acid (Multivitamin W/Minerals) 1 tab PO DAILY [facility] Last Admin: 10/18/17 09:00 Dose: 1 tab Levothyroxine Sodium (Synthroid) 75 mcg PO [facility] Last Admin: 10/18/17 06:44 Dose: 75 mcg Magnesium Hydroxide (Milk Of Magnesia) 30 ml PO BIDP PRN PRN Reason: Constipation Metformin HCl (Glucophage) 500 mg PO BIDCC [facility] Last Admin: 10/18/17 16:40 Dose: 500 mg Methocarbamol (Robaxin) 750 mg PO Q6HP PRN PRN Reason: Muscle Spasm Last Admin: 10/18/17 12:27 Dose: 750 mg Morphine Sulfate (Morphine) 0 mg IV Q1HP PRN PRN Reason: PAIN LEVEL > 6 Ondansetron HCl (Zofran Odt) 4 mg SL Q4HP PRN PRN Reason: Nausea And Vomiting Last Admin: 10/18/17 10:26 Dose: 4 mg Ondansetron HCl (Zofran) 4 mg IV Q4-6HP PRN PRN Reason: Nausea And Vomiting Linaclotide [Linzess (] 145 Mcg) 1 dose PO QAM [facility] Last Admin: 10/18/17 09:52 Dose: Not Given Linagliptin [ (Tradjenta] 5 Mg) 1 dose PO DAILY [facility] Last Admin: 10/18/17 09:00 Dose: 1 dose Polyethylene Glycol (Miralax) 17 gm PO DAILYP PRN PRN Reason: Constipation Pramipexole Dihydrochloride (Mirapex) 0.5 mg PO TID [facility] Last Admin: 10/18/17 20:55 Dose: 0.5 mg Risperidone (Risperdal) 0.5 mg PO [facility] Last Admin: 10/18/17 20:53 Dose: 0.5 mg Senna (Senokot) 1 tab PO BIDP PRN PRN Reason: Constipation Senna/Docusate Sodium (Senna Plus Tablet) 1 tab PO [facility] Last Admin: 10/18/17 20:57 Dose: 1 tab Sodium Biphosphate/Sodium Phosphate (Fleets Adult) 1 dose NC Q3-4DAYS PRN PRN Reason: Constipation Sodium Chloride (Saline Flush) 10 ml IV Q8 [facility] Last Admin: 10/18/17 20:57 Dose: 10 ml Throat Lozenges (Cepacol) 1 lozenge PO PRN PRN PRN Reason: Sore Throat Tramadol HCl (Ultram) 50 mg PO Q4-6HP PRN PRN Reason: Pain Trazodone HCl (Desyrel) 50 mg PO [facility] PRN PRN Reason: Insomnia Warfarin Sodium (Coumadin Per Pharmacy) 1 [place] PO [facility] [place] - PN: A/P - Time Spent With Patient Total time spent is greater than 50% in coordination of care (as documented) at patient's floor/unit and/or counseling patient: 15 - 24 minutes - Narrative A/P Narrative: * left hip fracture-postop day one managed per orthopedics. Ongoing physical therapy. Anticipate SNF transfer in 48 hours * Pain Management- per orthopedics. Well controlled * DVT prophylaxis per ortho on Coumadin hospitalist consult * History of Parkinson's disease-continue pramipexole/selegiline * DM type II continue prandial insulin/sitagliptin/metformin * Hyperlipidemia on statin * Hypothyroidism on thyroxine * DNR comfort care Plan * Continue pre-existing medical condition management as above * Continue Postoperative care/DVT prophylaxis/pain management per orthopedics. * Case management to coordinate SNF transfer Medical - PN: Qual - VTE Deep Vein Thrombosis/Pulmonary Embolism Present on Admission: No
[2017-10-19] MEDS: HYDROcodone/APAP 5/325MG TABLET PO PRN ×3 (00:01→19:46)
[2017-10-19] MEDS: 0.9 % SODIUM CHLORIDE 1,000 ML IV SCH ×2 (03:10→19:29)
[2017-10-19] MEDS: 0.9 % SODIUM CHLORIDE 10 ML SYRINGE IV SCH ×3 (04:25→21:38)
--- NOTE | 2017-10-19 06:44 | Orthopedic Progress Note ---
Subjective Patient information: Note initiated : 10/19/17 at 6:43 am Service Date, if different from initiated Date: [] Patient: Tere Mancia 82 y/o F admitted on 10/17/17 for Fall, Hip Pain, Shoulder Pain/Hip Fracture, Left. Chief Complaint: [] Interval history: doing ok. pain under control Objective Vital signs: Vital Signs Temp Pulse Resp BP Pulse Ox 10/19/17 04:00 98.9 F 89 20 131/79 95 10/19/17 00:00 99.7 F H 85 20 121/75 94 10/18/17 19:48 98.9 F 93 H 22 106/68 94 10/18/17 16:00 97.0 F 89 18 108/65 94 10/18/17 12:00 98.6 F 87 104/64 94 10/18/17 10:15 95 10/18/17 07:31 97.6 F 87 18 98/61 91 Intake and Output 10/18/17 10/19/17 10/19/17 21:59 05:59 13:59 Intake Total 800 / 800 1055 / 1055 Output Total 200 / 200 250 / 250 Balance 600 / 600 805 / 805 Intake: IV 955 / 955 Sodium Chloride 0.9% 1,000 ml @ 955 / 955 50 mls/hr IV .Q20H [facility] Rx#: [id number] Oral 800 / 800 100 / 100 Output: Urine Catheter Amount 200 / 200 250 / 250 Other: Weight 117 lb 8 oz Intake & Output: Intake & Output 10/18/17 10/19/17 10/19/17 21:59 05:59 13:59 Intake Total 800 / 800 1055 / 1055 Output Total 200 / 200 250 / 250 Balance 600 / 600 805 / 805 Weight 117 lb 8 oz Intake: IV 955 / 955 Sodium Chloride 0.9% 1,000 ml @ 955 / 955 50 mls/hr IV .Q20H [facility] Rx#: [id number] Oral 800 / 800 100 / 100 Output: Urine Catheter Amount 200 / 200 250 / 250 Incision: Yes healing Incision clean and dry: Yes Dressing: Yes clean, Yes dry, Yes intact Weight bearing status: full Neurological exam IM: Yes alert, Yes oriented X3, Yes motor sensory intact, Yes neurovascular intact Extremities exam IM: No calf tenderness, Yes Foot pink and warm, Yes neurovascular intact - Labs CBC & BMP: 10/19/17 04:13 10/17/17 12:09 Labs: Orthopedic Labs 10/19/17 10/18/17 10/17/17 04:13 04:51 12:09 PT 16.0 H 15.6 H 14.0 INR 1.3 H 1.2 H 1.1 10/19/17 10/18/17 10/17/17 04:13 04:51 12:09 Hgb 8.3 L 9.0 L 11.8 L Hct 25.2 L 27.7 L 35.6 L Assessment and Plan (1) Hip fracture, left pod 2 s/p gamma nail hip wbat pain control dvt prophylaxis dc planning Status: Acute Qualifiers: Encounter type: initial encounter Fracture type: closed Qualified Code(s) : S72.002A - Fracture of unspecified part of neck of left femur, initial encounter for closed fracture
--- NOTE | 2017-10-19 06:45 | Discharge Summary ---
Ortho Discharge Plan - General - Patient Instructions Diet: Clear Liquid Activity: ambulate with assistive device, weight bearing as tolerated Dressing Care: May shower in 2 days, Aquacel Ag - leave on for 5 days Patient Education: Hydrocodone (By mouth), Calcium and Osteoporosis (DC), Total Hip Replacement (DC) Additional Instructions: Discharge Instructions: Do the exercises at home that physical therapy gave you. Take your prescription, photo ID, insurance cards, and current medication list with you to your first physical therapy appointment. Take your prescription to supervisor opening and picking any medication or equipment (such as walker, crutches, toilet riser or C.P.M.) Wear comfortable clothing for your physical therapy. Weight bearing as tolerated. You have the Aquacel Ag dressing, leave in place for 7 days then remove. If dressing becomes soiled (turns black), remove and use gauze 4x4 dressing and silvasorb ointment and change daily. Keep incision clean and dry. To avoid constipation while taking any narcotic pain medication, take an over the counter stool softener/laxative. Call your physician for fevers above 100.5 or pain not controlled by medication. Your prescriptions are with your discharge information. Some medications were electronically transmitted to your pharmacy of choice. - Problem Maintenance (1) Hip fracture, left Status: Acute Qualifiers: Encounter type: initial encounter Fracture type: closed Qualified Code(s) : S72.002A - Fracture of unspecified part of neck of left femur, initial encounter for closed fracture - Follow Up Plan Follow Up Appointments: Selvin Cochran MD [Primary Care Provider] - Antoine Christianson MD [Physician] - 11/02/17 Disposition: Hospice - Home Prognosis: Fair Rehab Potential: Fair I certify that the patient requires SNF services: No - Orders For Discharge Prescriptions: HYDROcodone/APAP 5/325MG [[place] 5-325Mg] 1 - 2 tab PO Q4HP PRN #60 tab PRN Reason: Pain Level 3-6 Additional Discharge Orders: Physical Therapy at Discharge - General Location: Determined By Patient Walker Location: Determined By Patient
[2017-10-19] MEDS: LEVOTHYROXINE 75 MCG TABLET PO SCH (08:01)
[2017-10-19] MEDS: metFORMIN 500 MG TABLET PO SCH ×2 (08:02→17:51)
[2017-10-19] MEDS: INSULIN LISPRO 1 UNIT/0.01 ML UNIT SQ SCH ×4 (08:14→21:40)
[2017-10-19] MEDS: PRAMIPEXOLE 0.25 MG TABLET PO SCH ×3 (08:38→21:33)
[2017-10-19] MEDS: Linaclotide [Linzess] 145 MCG PO SCH (09:30)
[2017-10-19] MEDS: MULTIVIT,THER IRON,CA,FA & MIN 1 TABLET PO SCH (09:30)
[2017-10-19] MEDS: DOCUSATE SODIUM 100 MG CAPSULE PO SCH ×2 (09:30→21:35)
--- NOTE | 2017-10-19 10:12 | Internal Med Progress Note ---
Medical - PN: Subj Patient information: Note initiated : 10/19/17 at 10:10 am Service Date, if different from initiated Date: [] Patient: Tere Mancia a 82 y/o F admitted on 10/17/17 for Fall, Hip Pain, Shoulder Pain/Hip Fracture, Left. Chief Complaint: [] Interval history: Ms. Mancia is a 82 year old F admitted following a traumatic left hip fracture , H/o parkinsons with ataxia. Patient came in to the ER with her . She sustained a fall this morning getting off balance landing on her left hip and shoulder. Denies history of seizure, loss of consciousness, recent fever or chest pain, palpitation or thunderclap headache. Patient has had a gradual decline due to underlying Parkinson's disease and failure to thrive and is on hospice however in light of new fracture and excruciating pain she is currently being evaluated by orthopedics for possible surgical repair for palliation. Hospitalist service is consulted for management of medical issues. At the time of examination patient is in moderate discomfort. She is scheduled for surgical repair in the next few hours. No modifiable risk factor at this time. Patient remains a high risk operative candidate. 10/18-postoperative day 1. Age and doing well. No overnight events. No concerns per staff. Denies significant postoperative pain. Tolerating physical therapy. Family expressed concerns about inability to take care of her at home. Family also requested postoperative rehabilitation and hence case management consulted for transfer to short-term rehabilitation on discharge. On Coumadin per orthopedics for DVT prophylaxis. Pain in good control.. 10/19-patient doing well. Anticipate discharge to SNF in 24 hours. at bedside. No overnight events. Active hallucination noted. Ongoing physical therapy. Nursing staff concerned about difficulty swallowing. Speech therapy consult ordered. No fever chills or postoperative pain. - Constitutional Vitals: Vital Signs Temp Pulse Resp BP Pulse Ox 98.9 F 90 21 107/64 93 10/19/17 08:00 10/19/17 08:00 10/19/17 08:00 10/19/17 08:00 10/19/17 08:00 Period Temp Pulse Resp BP Sys/Mcneal Pulse Ox Last 24 Hr 97.0 F-99.7 F 85-93 - 104-131/64-79 93-95 Intake and Output 10/18/17 10/19/1710/19/18 21:59 05:59 13:59 Intake Total 800 / 800 1055 / 1055 Output Total 200 / 200 250 / 250 Balance 600 / 600 805 / 805 Weight 117 lb 8 oz Intake & Output: Intake & Output 10/18/17 10/19/17 10/19/17 21:59 05:59 13:59 Intake Total 800 / 800 1055 / 1055 Output Total 200 / 200 250 / 250 Balance 600 / 600 805 / 805 Weight 117 lb 8 oz Intake: IV 955 / 955 Sodium Chloride 0.9% 1,000 ml @ 955 / 955 50 mls/hr IV .Q20H [facility] Rx#: [id number] Oral 800 / 800 100 / 100 Output: Urine Catheter Amount 200 / 200 250 / 250 General appearance: no acute distress Exam: Active hallucinations nonlabored breathing nondistended abdomen Mildly anxious Medical - PN: Obj Da - Labs CBC & Chem 7: 10/19/17 04:13 10/17/17 12:09 Labs: Abnormal Lab Results 10/19/17 10/19/17 10/18/17 04:13 04:13 04:51 WBC RBC Hgb 8.3 L Hct 25.2 L Gran % Lymph % (Auto) Gran # Lymph # (Auto) PT 16.0 H 15.6 H INR 1.3 H 1.2 H Glucose Urine Ketones 10/18/17 10/17/17 10/17/17 04:51 19:15 12:09 WBC RBC Hgb 9.0 L Hct 27.7 L Gran % Lymph % (Auto) Gran # Lymph # (Auto) PT INR Glucose 161 H Urine Ketones 80 A 10/17/17 10/17/17 12:09 11:52 WBC 14.8 H RBC 3.72 L Hgb 11.8 L Hct 35.6 L Gran % 93.1 H Lymph % (Auto) 5.0 L Gran # 13.7 H Lymph # (Auto) 0.7 L PT INR Glucose Urine Ketones 20 A Meds: Medications Acetaminophen (Tylenol) 650 mg PO Q4-6HP PRN PRN Reason: PAIN/FEVER > 101 Hydrocodone Bitart/Acetaminophen ([place] 5/325mg) 0 tab PO Q4HP PRN PRN Reason: PAIN LEVEL 3-6 Last Admin: 10/19/17 08:37 Dose: 1 tab Atorvastatin Calcium (Lipitor) 10 mg PO HS [facility] Last Admin: 10/18/17 20:56 Dose: 10 mg Bisacodyl (Dulcolax) 10 mg AR Q2-3DAYS PRN PRN Reason: Constipation Diagnostic Test (Pha) (Accu-Chek) 1 each FS ACHS [facility] PRN Reason: Protocol Last Admin: 10/19/17 08:01 Dose: 1 each Docusate Sodium (Colace) 100 mg PO BID [facility] Last Admin: 10/18/17 20:56 Dose: 100 mg Hydromorphone HCl (Dilaudid) 0.5 mg IV Q15MIN PRN PRN Reason: PAIN LEVEL > 6 Hydromorphone HCl (Dilaudid) 0 mg IV Q4HP PRN PRN Reason: PAIN LEVEL > 6 Last Admin: 10/18/17 02:14 Dose: 0.5 mg Sodium Chloride (Sodium Chloride 0.9%) 1,000 mls @ 50 mls/hr IV .Q20H [facility] Stop: 10/20/17 05:16 Last Admin: 10/19/17 03:10 Dose: 50 mls/hr Acetaminophen (Ofirmev) 1,000 mg in 100 mls @ 200 mls/hr IV Q6HP PRN PRN Reason: PAIN/FEVER > 101 Insulin Human Lispro (Humalog) 0 unit SQ [facility] PRN Reason: Protocol Last Admin: 10/19/17 08:14 Dose: 4 unit Iron Carb/Multivit/[place]/Folic Acid (Multivitamin W/Minerals) 1 tab PO DAILY [facility] Last Admin: 10/18/17 09:00 Dose: 1 tab Levothyroxine Sodium (Synthroid) 75 mcg PO QAMAC [facility] Last Admin: 10/19/17 08:01 Dose: 75 mcg Magnesium Hydroxide (Milk Of Magnesia) 30 ml PO BIDP PRN PRN Reason: Constipation Metformin HCl (Glucophage) 500 mg PO BIDCC [facility] Last Admin: 10/19/17 08:02 Dose: 500 mg Methocarbamol (Robaxin) 750 mg PO Q6HP PRN PRN Reason: Muscle Spasm Last Admin: 10/18/17 12:27 Dose: 750 mg Morphine Sulfate (Morphine) 0 mg IV Q1HP PRN PRN Reason: PAIN LEVEL > 6 Ondansetron HCl (Zofran Odt) 4 mg SL Q4HP PRN PRN Reason: Nausea And Vomiting Last Admin: 10/18/17 10:26 Dose: 4 mg Ondansetron HCl (Zofran) 4 mg IV Q4-6HP PRN PRN Reason: Nausea And Vomiting Linaclotide [Linzess (] 145 Mcg) 1 dose PO QAM [facility] Last Admin: 10/18/17 09:52 Dose: Not Given Linagliptin [ (Tradjenta] 5 Mg) 1 dose PO DAILY [facility] Last Admin: 10/19/17 08:40 Dose: 1 dose Polyethylene Glycol (Miralax) 17 gm PO DAILYP PRN PRN Reason: Constipation Pramipexole Dihydrochloride (Mirapex) 0.5 mg PO TID [facility] Last Admin: 10/19/17 08:38 Dose: 0.5 mg Risperidone (Risperdal) 0.5 mg PO [facility] Last Admin: 10/18/17 20:53 Dose: 0.5 mg Senna (Senokot) 1 tab PO BIDP PRN PRN Reason: Constipation Senna/Docusate Sodium (Senna Plus Tablet) 1 tab PO [facility] Last Admin: 10/18/17 20:57 Dose: 1 tab Sodium Biphosphate/Sodium Phosphate (Fleets Adult) 1 dose AR Q3-4DAYS PRN PRN Reason: Constipation Sodium Chloride (Saline Flush) 10 ml IV Q8 [facility] Last Admin: 10/19/17 04:25 Dose: 10 ml Throat Lozenges (Cepacol) 1 lozenge PO PRN PRN PRN Reason: Sore Throat Tramadol HCl (Ultram) 50 mg PO Q4-6HP PRN PRN Reason: Pain Trazodone HCl (Desyrel) 50 mg PO [facility] PRN PRN Reason: Insomnia Warfarin Sodium (Coumadin Per Pharmacy) 1 order PO [facility] [place] - PN: A/P - Time Spent With Patient Total time spent is greater than 50% in coordination of care (as documented) at patient's floor/unit and/or counseling patient: 15 - 24 minutes - Narrative A/P Narrative: * left hip fracture-postop day one managed per orthopedics. Ongoing physical therapy. Anticipate SNF transfer in 48 hours * Pain Management- per orthopedics. Well controlled * DVT prophylaxis per ortho on Coumadin INR 1.3. * Postoperative anemia-hemoglobin 8.2. No indication for transfusion. hospitalist consult * History of Parkinson's disease-active hallucinations. Continue pramipexole/ selegiline * DM type II continue prandial insulin/sitagliptin/metformin. Blood sugars at goal. * Hyperlipidemia on statin * Hypothyroidism on thyroxine * DNR comfort care Plan * Continue pre-existing medical condition management as above * Anticipate discharge to SNF in 24 hours * ST/OT PT eval and treatment Medical - PN: Qual - VTE Deep Vein Thrombosis/Pulmonary Embolism Present on Admission: No
[2017-10-19] MEDS ORDERED: WARFARIN 4 MG TABLET PO ONE (14:00)
[2017-10-19] MEDS: traMADol 50 MG TABLET PO PRN (16:03)
[2017-10-19] MEDS: risperiDONE 0.25 MG TABLET PO SCH (21:30)
[2017-10-19] MEDS: SENNOSIDES/DOCUSATE SODIUM 1 TAB TABLET PO SCH (21:32)
[2017-10-19] MEDS: ATORVASTATIN 20 MG TABLET PO SCH (21:36)
[2017-10-20] MEDS: HYDROcodone/APAP 5/325MG TABLET PO PRN ×5 (00:24→23:55)
[2017-10-20] MEDS: 0.9 % SODIUM CHLORIDE 10 ML SYRINGE IV SCH ×3 (05:20→20:26)
[2017-10-20] MEDS: LEVOTHYROXINE 75 MCG TABLET PO SCH (07:36)
[2017-10-20] MEDS: metFORMIN 500 MG TABLET PO SCH ×2 (07:37→18:03)
[2017-10-20] MEDS: INSULIN LISPRO 1 UNIT/0.01 ML UNIT SQ SCH ×4 (08:00→20:28)
[2017-10-20] MEDS: DOCUSATE SODIUM 100 MG CAPSULE PO SCH ×2 (09:08→20:26)
[2017-10-20] MEDS: MULTIVIT,THER IRON,CA,FA & MIN 1 TABLET PO SCH (09:09)
[2017-10-20] MEDS: PRAMIPEXOLE 0.25 MG TABLET PO SCH ×3 (09:09→20:25)
[2017-10-20] MEDS: Linaclotide [Linzess] 145 MCG PO SCH (09:11)
[2017-10-20] MEDS ORDERED: IRON SUCROSE COMPLEX 400 MG in 0.9 % SODIUM CHLORIDE 250 ML IV SCH (09:30)
--- NOTE | 2017-10-20 11:12 | Discharge Summary ---
Medical - DS: Prov Patient information: Note initiated : 10/20/17 at 11:09 am Service Date, if different from initiated Date: [] Patient: Tere Mancia 82 y/o F admitted on 10/17/17 for Fall, Hip Pain, Shoulder Pain/Hip Fracture, Left. Chief Complaint: [] Date of admission: 10/17/17 17:06 Discharge date: 10/27/17 Primary care physician: Selvin Cochran Consults: 10/17/17 11:22 Consult to Physician [CONS] Stat Comment: Consulting Provider: Antoine Christianson Reason For Exam: Physician to Consult 10/17/17 12:13 Consult to Physician [CONS] Stat Comment: Consulting Provider: Sarwat Nj Reason For Exam: Physician to Consult Medical - DS: Meds - Discharge Medications Prescriptions: HYDROcodone/APAP 5/325MG [[place] 5-325Mg] 1 - 2 tab PO Q4HP PRN #60 tab PRN Reason: Pain Level 3-6 Warfarin [Coumadin] 2 mg PO DAILY #5 tab Active and Home Medications: Home Medications pramipexole 0.5 mg tablet 0.5 mg PO TID 05/06/15 [History Confirmed 10/17/17 Last Taken 11/12/15] linaclotide 145 mcg capsule 145 mcg PO QAM #30 cap 10/03/15 [Rx Confirmed Last Taken 10/16/17] sennosides 8.6 mg tablet 8.6 mg PO QD-BID PRN 12/04/15 [History Confirmed Last Taken Unknown] linagliptin 5 mg tablet 5 mg PO QDAY #90 tab 10/20/16 [Rx Confirmed 10/17/17 Last Taken 10/16/17] atorvastatin 10 mg tablet 10 mg PO .COMPLEX #90 tab 11/04/16 [Rx Confirmed 10/17 Last Taken 10/16/17] valacyclovir 500 mg tablet See Dose Instructions PO .COMPLEX #90 tab 01/03/17 [ Rx Confirmed 10/17/17 Last Taken 10/16/17] metformin 500 mg tablet 500 mg PO BID #180 tab 02/17/17 [Rx Confirmed 10/17/17 Last Taken 10/16/17] levothyroxine 75 mcg tablet 75 mcg PO QDAY #90 tab 03/20/18 [Rx Confirmed Last Taken 10/16/17] risperidone 0.5 mg tablet 0.5 mg PO QHS #30 tab 09/23/17 [Rx Confirmed 10/17/17 Last Taken 10/16/17] HYDROcodone/APAP 5/325MG [[place] 5-325Mg] 1 - 2 tab PO Q4HP PRN #60 tab 10/18/17 [Rx Last Taken Unknown] HYDROcodone/APAP 10/325MG [[place] 10-325Mg] 1 - 2 tab PO Q4H PRN #60 tablet 10/19 [Rx Last Taken Unknown] traMADol [Ultram] 50 mg PO Q4-6HP PRN #30 tab 10/20/17 [Rx Last Taken Unknown] Medical - DS: Hosp Hospital course: Discharge diagnoses * left hip fracture-postop day 3 managed per orthopedics. Continue physical therapy anticipate SNF. * Pain Management- per orthopedics. Continue as needed tramadol/Tylenol * DVT prophylaxis per ortho on Coumadin INR 1.8 * hospitalist consult * Postoperative anemia-hemoglobin 7.1. 400 mg IV iron sucrose infusion * History of Parkinson's disease-active hallucinations. Continue pramipexole/ selegiline. At baseline * DM type II managed on prandial insulin/sitagliptin/metformin. * Hyperlipidemia managed on statin * Hypothyroidism managed on thyroxine Brief hospital course Ms. Mancia is a 82 year old F admitted following a traumatic left hip fracture , H/o parkinsons with ataxia. Patient came in to the ER with her . She sustained a fall this morning getting off balance landing on her left hip and shoulder. Denies history of seizure, loss of consciousness, recent fever or chest pain, palpitation or thunderclap headache. Patient has had a gradual decline due to underlying Parkinson's disease and failure to thrive and is on hospice however in light of new fracture and excruciating pain she is currently being evaluated by orthopedics for possible surgical repair for palliation. Hospitalist service is consulted for management of medical issues. At the time of examination patient is in moderate discomfort. She is scheduled for surgical repair in the next few hours. No modifiable risk factor at this time. Patient remains a high risk operative candidate. 10/18-postoperative day 1. Age and doing well. No overnight events. No concerns per staff. Denies significant postoperative pain. Tolerating physical therapy. Family expressed concerns about inability to take care of her at home. Family also requested postoperative rehabilitation and hence case management consulted for transfer to short-term rehabilitation on discharge. On Coumadin per orthopedics for DVT prophylaxis. Pain in good control.. 10/19-patient doing well. Anticipate discharge to SNF in 24 hours. at bedside. No overnight events. Active hallucination noted. Ongoing physical therapy. Nursing staff concerned about difficulty swallowing. Speech therapy consult ordered. No fever chills or postoperative pain. 10/20-patient doing well. Ongoing physical therapy. Transfer to SNF for continued posthospitalization rehabilitation for left hip fracture. Hemoglobin 7.1 but no active bleed noted. Status post 400 g IV iron sucrose infusion. Aggressive PT OT at care Center. Discharge instructions as below Discharge diagnosis: , - Time Spent with Patient Total time spent providing and/or coordinating discharge services: Greater than 30 minutes Medical - DS: Exam - Constitutional Vitals: Vital Signs Temp Pulse Resp BP BP Pulse Ox 10/20/17 08:00 80 10/20/17 07:07 18 92 10/20/17 07:06 98.9 F 79 18 97/57 92 10/20/17 04:00 98.2 F 84 20 122/74 95 10/20/17 00:00 98.6 F 83 20 100/64 93 10/19/17 20:00 98.9 F 98 H 28 H 138/69 94 10/19/17 18:00 98.5 F 89 20 108/64 90 10/19/17 14:00 98.9 F 89 20 111/63 93 10/19/17 13:00 98.9 F 89 20 91/54 111/63 93 Intake and Output 10/19/17 10/20/17 10/20/17 21:59 05:59 13:59 Intake Total 100 / 100 Output Total 550 / 550 300 / 300 327 / 327 Balance -450 / -450 -300 / -300 -327 / -327 Intake: Oral 100 / 100 Output: Urine Catheter Amount 550 / 550 150 / 150 Uretheral ([place]) 150 / 150 150 / 150 Void Amount 300 / 300 175 / 175 # of times incontinent of urine 2 / 2 Other: Meal Dinner Breakfast Percent of Meal Consumed Refused 25% Feeding Ability Assist with Tray Set Up Independent Stool Size Smear Stool Color Yellow Stool Consistency Loose # Bowel Movements 1 Weight 118 lb Medical - DS: Data Labs on day of discharge: Labs from last 24 hours 10/20/17 10/20/17 04:49 04:49 Hgb 7.1 L Hct 21.9 L PT 20.6 H INR 1.8 H Medical - DS: A/P - Patient/Caregiver Discharge Instructions Activity: as per physical therapy, increase activity as tolerated Diet: Regular Diet Additional Instructions: Discharge Instructions: Do the exercises at home that physical therapy gave you. Wear comfortable clothing for your physical therapy. Weight bearing as tolerated. You have the Aquacel Ag dressing, leave in place for 7 days then remove. If dressing becomes soiled (turns black), remove and use gauze 4x4 dressing and silvasorb ointment and change daily. Keep incision clean and dry. To avoid constipation while taking any narcotic pain medication, take an over the counter stool softener/laxative. Pt will continue 2 mg Coumadin daily. Orthopedic surgeon recommends PT/INR on Tuesday, October 23. Pharmacy to dose Coumadin. Call your physician for fevers above 100.5 or pain not controlled by medication. Your prescriptions are with your discharge information. Some medications were electronically transmitted to your pharmacy of choice. Follow-up PCP in 5 days F/u orthopedics as scheduled by orthopedics along with post op care. Coumadin as per orthopedics for post hip DVT prophylaxis Hospitalist recommends SNF physician to check INR, CBC BMP UA as a posthospital follow-up in 1 week. Continue aggressive bowel regimen to prevent constipation Continue fall precautions Continue aggressive PT OT evaluation and treatment at [facility]. ST eval and treatment if indicated All meals on chair sitting upright at 90 degrees to prevent aspiration Return to ER if worsening fever chills shortness of breath, diarrhea, bleeding Refrain from smoking and alcohol Continue diet and activity as advised Discussed importance of medication adherence Please review medication list with patient prior to discharge Please schedule follow-up with PCP/Providers prior to discharge and provide printouts Portions of this chart may have been created with [employer] voice recognition software. Occasional wrong-word or ?sound-like? substitutions may have occurred due to the inherent limitations of voice recognition software. Please read the chart carefully and recognize, using context, where the substitutions have occurred. CC- PCP Prescriptions: HYDROcodone/APAP 5/325MG [[place] 5-325Mg] 1 - 2 tab PO Q4HP PRN #60 tab PRN Reason: Pain Level 3-6 Warfarin [Coumadin] 2 mg PO DAILY #5 tab Other Amb Orders: OT Discharge Order Location: Determined By Patient Physical Therapy at Discharge - General Location: Determined By Patient Physical Therapy at Discharge - General Location: Determined By Patient Walker Location: Determined By Patient - Follow up Plan Follow up with: Selvin Cochran MD [Primary Care Provider] - (Schedule as needed. ) Antoine Christianson MD [Physician] - 11/02/17 (Please call/schedule follow up to be seen 10-14 days after surgery.) Disposition: Xfer SNF Prognosis: Fair Rehab Potential: Fair I certify that the patient requires SNF services: Yes Overall status at discharge: patient is progressing back to baseline Medical - DS: Qual - VTE Deep Vein Thrombosis/Pulmonary Embolism Present on Admission: No
[2017-10-20] MEDS ORDERED: WARFARIN 2 MG TABLET PO SCH (14:00)
--- NOTE | 2017-10-20 18:18 | Internal Med Progress Note ---
Medical - Auxillary Note - Subjective Patient Information: Note initiated : 10/20/17 at 6:17 pm Service Date, if different from initiated Date: [] Patient: Tere Mancia 82 y/o F admitted on 10/17/17 for Fall, Hip Pain, Shoulder Pain/Hip Fracture, Left. Discharge delayed due to unavailability of bed.
[2017-10-20] MEDS: risperiDONE 0.25 MG TABLET PO SCH (20:24)
[2017-10-20] MEDS: ATORVASTATIN 20 MG TABLET PO SCH (20:25)
[2017-10-20] MEDS: SENNOSIDES/DOCUSATE SODIUM 1 TAB TABLET PO SCH (20:26)
[2017-10-21] MEDS: 0.9 % SODIUM CHLORIDE 10 ML SYRINGE IV SCH (05:54)
--- NOTE | 2017-10-21 07:03 | Orthopedic Progress Note ---
Subjective Patient information: Note initiated : 10/21/17 at 7:01 am Service Date, if different from initiated Date: [] Patient: Tere Mancia 82 y/o F admitted on 10/17/17 for Fall, Hip Pain, Shoulder Pain/Hip Fracture, Left. Chief Complaint: [POD #4 s/p left hip nailing Patient is doing well. A full exam is difficult to perform due to her mental status. She has been transferring okay per the nursing staff.] Objective Vital signs: Vital Signs Temp Pulse Resp BP BP Pulse Ox 10/21/17 03:00 98.0 F 86 18 120/70 95 10/20/17 23:00 99.0 F H 88 16 104/61 95 10/20/17 19:00 97.9 F 94 H 20 120/68 91 10/20/17 15:00 99.0 F H 85 16 120/64 92 10/20/17 11:48 99.4 F H 84 16 119/67 92 10/20/17 08:00 80 10/20/17 07:07 18 92 10/20/17 07:06 98.9 F 79 18 97/57 92 Intake and Output 10/20/17 10/21/17 10/21/17 21:59 05:59 13:59 Intake Total 120 / 120 Output Total 151 / 151 300 / 300 Balance -31 / -31 -300 / -300 Intake: Oral 120 / 120 Output: Void Amount 150 / 150 300 / 300 # of times incontinent of urine 1 Other: Meal Lunch Percent of Meal Consumed 25% Stool Size Small Stool Color Brown Green Stool Consistency Liquid # Voids 3 # of times incontinent of 1 Bowels Weight 116 lb 8 oz Intake & Output: Intake & Output 10/20/17 10/21/17 10/21/17 21:59 05:59 13:59 Intake Total 120 / 120 Output Total 151 / 151 300 / 300 Balance -31 / -31 -300 / -300 Weight 116 lb 8 oz Intake: Oral 120 / 120 Output: Void Amount 150 / 150 300 / 300 # of times incontinent of urine 1 / Other: Meal Lunch Percent of Meal Consumed 25% Stool Size Small Stool Color Brown Green Stool Consistency Liquid # Voids 3 # of times incontinent of 1 Bowels Incision: Yes healing, No draining, No red, No swollen, No inflamed, Yes clean and dry Incision clean and dry: Yes Dressing: Yes clean, Yes dry, Yes intact Weight bearing status: partial Neurological exam IM: Yes motor sensory intact, Yes neurovascular intact Extremities exam IM: No calf tenderness, Yes Foot pink and warm, Yes neurovascular intact - Periperhal Pulses Peripheral pulses: 2+: dorsalis pedis (L), dorsalis pedis (R), posterior tibialis (L), posterior tibialis (R) - Labs CBC & BMP: 10/20/17 04:49 10/17/17 12:09 Labs: Orthopedic Labs 10/21/17 10/20/17 10/19/17 05:11 04:49 04:13 PT Pending 20.6 H 16.0 H INR Pending 1.8 H 1.3 H 10/18/17 10/17/17 04:51 12:09 PT 15.6 H 14.0 INR 1.2 H 1.1 10/20/17 10/19/17 10/18/17 04:49 04:13 04:51 Hgb 7.1 L 8.3 L 9.0 L Hct 21.9 L 25.2 L 27.7 L 10/17/17 12:09 Hgb 11.8 L Hct 35.6 L Assessment and Plan (1) Hip fracture, left POD #4 s/p left hip nailing: -TTWB to about 50% with walker -keep meg clean, dry and covered with dressing until PO appt -pain control -encourage movement of feet -outpatient PT/exercises -f/u in clinic in 10-14 days Status: Acute Qualifiers: Encounter type: initial encounter Fracture type: closed Qualified Code(s) : S72.002A - Fracture of unspecified part of neck of left femur, initial encounter for closed fracture
[2017-10-21] MEDS: metFORMIN 500 MG TABLET PO SCH (07:43)
[2017-10-21] MEDS: LEVOTHYROXINE 75 MCG TABLET PO SCH (07:44)
[2017-10-21] MEDS: HYDROcodone/APAP 5/325MG TABLET PO PRN (07:44)
[2017-10-21] MEDS: INSULIN LISPRO 1 UNIT/0.01 ML UNIT SQ SCH (08:16)
[2017-10-21] MEDS: PRAMIPEXOLE 0.25 MG TABLET PO SCH (08:51)
[2017-10-21] MEDS: MULTIVIT,THER IRON,CA,FA & MIN 1 TABLET PO SCH (08:51)
[2017-10-21] MEDS: DOCUSATE SODIUM 100 MG CAPSULE PO SCH (08:51)
[2017-10-21] MEDS: METHOCARBAMOL 750 MG TABLET PO PRN (08:57)
[2017-10-21] MEDS: traMADol 50 MG TABLET PO PRN (08:57)
--- NOTE | 2017-10-21 09:05 | Discharge Plan ---
Discharge Plan - Patient/Caregiver Discharge Instructions Discharge Summary: Discharge diagnoses * left hip fracture-postop day 4 managed per orthopedics. Continue physical therapy. await transfer to SNF. * Pain Management-managed per orthopedics. Well controlled on tramadol/Tylenol * DVT prophylaxis per orthopedics on Coumadin INR 2.3 * Postoperative anemia-hemoglobin 7.1. Status post 400 mg IV iron sucrose infusion * History of Parkinson's disease-active hallucinations. Continue pramipexole/ selegiline. At baseline * DM type II managed on prandial insulin/sitagliptin/metformin. * Hyperlipidemia managed on statin * Hypothyroidism managed on thyroxine Plan Transfer to SNF once bed available Activity: as per physical therapy, increase activity as tolerated Diet: Clear Liquid Additional Instructions: Discharge Instructions: Do the exercises at home that physical therapy gave you. Wear comfortable clothing for your physical therapy. Weight bearing as tolerated. You have the Aquacel Ag dressing, leave in place for 7 days then remove. If dressing becomes soiled (turns black), remove and use gauze 4x4 dressing and silvasorb ointment and change daily. Keep incision clean and dry. To avoid constipation while taking any narcotic pain medication, take an over the counter stool softener/laxative. Pt will continue 2 mg Coumadin daily. Orthopedic surgeon recommends PT/INR on Tuesday, October 23. Pharmacy to dose Coumadin. Call your physician for fevers above 100.5 or pain not controlled by medication. Your prescriptions are with your discharge information. Some medications were electronically transmitted to your pharmacy of choice. Follow-up PCP in 5 days F/u orthopedics as scheduled by orthopedics along with post op care. Coumadin as per orthopedics for post hip DVT prophylaxis Hospitalist recommends SNF physician to check INR, CBC BMP UA as a posthospital follow-up in 1 week. Continue aggressive bowel regimen to prevent constipation Continue fall precautions Continue aggressive PT OT evaluation and treatment at [facility]. ST eval and treatment if indicated All meals on chair sitting upright at 90 degrees to prevent aspiration Return to ER if worsening fever chills shortness of breath, diarrhea, bleeding Refrain from smoking and alcohol Continue diet and activity as advised Discussed importance of medication adherence Please review medication list with patient prior to discharge Please schedule follow-up with PCP/Providers prior to discharge and provide printouts Portions of this chart may have been created with [employer] recognition software. Occasional wrong-word or ?sound-like? substitutions may have occurred due to the inherent limitations of voice recognition software. Please read the chart carefully and recognize, using context, where the substitutions have occurred. CC- PCP Prescriptions: HYDROcodone/APAP 5/325MG [[place] 5-325Mg] 1 - 2 tab PO Q4HP PRN #60 tab PRN Reason: Pain Level 3-6 Warfarin [Coumadin] 2 mg PO DAILY #5 tab Other Amb Orders: OT Discharge Order Location: Determined By Patient Physical Therapy at Discharge - General Location: Determined By Patient Physical Therapy at Discharge - General Location: Determined By Patient Walker Location: Determined By Patient - Follow up Plan Follow up with: Selvin Cochran MD [Primary Care Provider] - (Schedule as needed. ) Antoine Christianson MD [Physician] - 11/02/17 (Please call/schedule follow up to be seen 10-14 days after surgery.) Disposition: Xfer SNF Prognosis: Fair Rehab Potential: Fair I certify that the patient requires SNF services.: Yes Overall status at discharge: patient is not back to baseline
[2017-10-21] MEDS: Linaclotide [Linzess] 145 MCG PO SCH (10:30)
== END 2017-10-21 11:05 | DRG 482 ==
LOC: ED 08:21 → SUR 13:40 → MEDSUR 17:06
PROVIDERS: ADMIT Internal Medicine; ATTEND Internal Medicine